=== PATIENT | female | born 1990 | race Caucasian/White ===

== ENCOUNTER 2016-07-03 08:20 | Emergency (ER) | payer OTHER ==
--- NOTE | ~2016-07-03 | CR63 ---
[facility] A Service of [facility] RADIOLOGY TEXT RESULTS PATIENT: LEX LIGHT LOCATION: SED : [birth year] UNIT #: [id number] AGE: [address]: Estrada Stout MD SEX: F ORDER DR: [id number] [place] [id number] E MR#: [id number] Acc #: [id number] NAME: LEX LIGHT : 1990 SEX: F STUDY DATE/TIME: 07/03/2016 8:09 UNIT: SED ROOM: STUDY DESCRIPTION: CR Chest 2 View Attending Physician: Estrada Stout M.D. Ordering Physician: Estrada Stout M.D. Primary Care Physician: Pau Almodovar A.P.R.N. MEDICAL IMAGING REPORT This report is preliminary unless electronic signature is present. EXAM 2 views of the chest COMPARISON Acute abdominal series dated July 17, 2015. INDICATIONS 25-year-old female with coughing and chest pain for 30 minutes after smoking. FINDINGS Cardiomediastinal silhouette appears within normal limits. No pneumothorax or pleural effusion. There are minimal band-like opacities in the right lung base favoring atelectasis. Alternatively these may represent normal bronchovascular structures when allowing for differences in overlap with the ribs. These linear opacities appear stable from July 2015 favoring normal bronchovascular structures. Normal cardiomediastinal silhouette. IMPRESSION No definite acute radiographic abnormality. Linear opacities in the right lung base are likely not significantly changed from July 2015 when allowing for differences in positioning and the patient's overlapping bra. At the most the finding would seem to reflect minimal band-like atelectasis given appearance on lateral view. No pleural effusion. No convincing evidence of acute pneumonia. Dictated by... Ashish Mcmillan M.D. THIS IS AN ELECTRONICALLY VERIFIED REPORT Ashish Mcmillan M.D. at 07/06/2016 9:08 AM [facility] A Service of [facility] RADIOLOGY TEXT RESULTS PATIENT: LEX LIGHT LOCATION: [facility] [place] [birth year] UNIT #: [id number] AGE: [address]: Estrada Stout MD SEX: F ORDER DR: EDEN/jeremi TD: 07/03/2016 19:11 JOB #: [id number] MEDICAL IMAGING REPORT Page 1 of 1
[~2016-07-03 08:20] MED LIST: BACTRIM DS TABL1 TA1 PO; BENTYL20 M1 PO; MACROBID100 MG PO; TRILEPTAL PO; ZOFRAN ODT4 MG PO; ZOFRAN ODT4 MG SL
== END 2016-07-03 09:35 | disposition home or self-care (01) ==
LOC: SED 08:20
DX: F41.1 Generalized anxiety disorder (principal); F12.10 Cannabis abuse, uncomplicated; F17.210 Nicotine dependence, cigarettes, uncomplicated
CPT/HCPCS: 71020; 99283

== ENCOUNTER 2016-09-05 18:19 | Emergency (ER) | payer OTHER ==
--- NOTE | ~2016-09-05 | CR94 ---
[facility]. [facility] A Service of [facility] & [facility] RADIOLOGY TEXT RESULTS PATIENT: LEX LIGHT LOCATION: SED : 92 UNIT #: [id number] AGE: [address]: MERLIN HUMPHRIES SEX: F ORDER DR: [id number] [place] [id number] E MR#: [id number] Acc #: [id number] NAME: LEX LIGHT : 1990 SEX: F STUDY DATE/TIME: 09/05/2016 19:38 UNIT: SED ROOM: STUDY DESCRIPTION: CR Elbow Min 3 Views Rt Attending Physician: Merlin Humphries Ordering Physician: Physician Non-Staff Primary Care Physician: Pau Almodovar A.P.R.N. MEDICAL IMAGING REPORT This report is preliminary unless electronic signature is present. EXAM Right elbow 3 views 09/05/2016. HISTORY Right elbow pain for 2 days status post fall hit elbow. FINDINGS AP and lateral examination of the elbow shows satisfactory articulation of the humerus with the proximal radius and ulna. There is no identifiable fracture, dislocation, joint effusion, or radiopaque foreign body in the soft tissues. IMPRESSION Normal elbow. Dictated by... Pierre Middleton M.D. THIS IS AN ELECTRONICALLY VERIFIED REPORT Pierre Middleton M.D. at 09/06/2016 10:41 AM ARMANI/jeremi TD: 09/06/2016 06:56 JOB #: [id number] MEDICAL IMAGING REPORT Page 1 of 1
== END 2016-09-05 20:28 | disposition home or self-care (01) ==
LOC: SED 18:19
DX: S50.01XA Contusion of right elbow, initial encounter (principal); G40.909 Epilepsy, unspecified, not intractable, without status epilepticus; F31.9 Bipolar disorder, unspecified; F17.210 Nicotine dependence, cigarettes, uncomplicated; Z88.8 Allergy status to other drugs, medicaments and biological substances; W01.0XXA Fall on same level from slipping, tripping and stumbling without subsequent striking against object, initial encounter; Y92.512 Supermarket, store or market as the place of occurrence of the external cause
CPT/HCPCS: 73080; 84703; 99283

== ENCOUNTER 2016-10-12 23:50 | Emergency (ER) | payer OTHER | END 2016-10-13 02:39 | disposition home or self-care (01) | LOC: SED 23:50 | DX: H92.01 Otalgia, right ear (principal); M25.562 Pain in left knee; G89.29 Other chronic pain; F31.9 Bipolar disorder, unspecified; G40.909 Epilepsy, unspecified, not intractable, without status epilepticus; F17.200 Nicotine dependence, unspecified, uncomplicated | CPT/HCPCS: 99283 ==